=== PATIENT | male | born 2000 | race Caucasian/White ===

== ENCOUNTER 2018-10-07 22:46 | Emergency (ER) | payer OTHER ==
[2018-10-08 01:50] LABS: ADD MAN DIFF? NO
[2018-10-08 01:53] LABS: WHITE BLOOD COUNT 14.1 10^3/ul (4.8-10.8)
[2018-10-08 01:53] LABS: BASOPHILS % 0.2 % (0.0-2.0); EOSINOPHILS # 0.1 10^3/ul (0.0-0.5); EOSINOPHILS % 0.4 % (0.0-7.0); HEMATOCRIT 46.7 % (42.0-52.0); LYMPHOCYTES # 1.7 10^3/ul (0.8-2.9); LYMPHOCYTES % 12.2 % (18.0-55.0); MEAN CORPUSCULAR HEMOGLOBIN 31.1 pg (29.0-33.0); MEAN CORPUSCULAR HGB CONC 34.3 g/dl (32.0-37.0); MEAN CORPUSCULAR VOLUME 90.7 fl (72.0-104.0); MEAN PLATELET VOLUME 12.6 fl (7.4-10.4); MONOCYTE # 1.3 10^3/ul (0.3-0.9); MONOCYTES % 9.4 % (0.0-13.0); NEUTROPHIL # 10.9 10^3/ul (1.6-7.5); NEUTROPHILS % 77.3 % (30.0-74.0); PLATELET COUNT 205 10^3/UL (140-415); RED BLOOD COUNT 5.15 10^6/ul (4.70-6.10); RED CELL DISTRIBUTION WIDTH 12.3 % (11.5-14.5)
[2018-10-08] MEDS: SOD CHLORIDE 0.9% 1,000 ML IV (01:53)
[2018-10-08 01:55] LABS: ADD UMIC YES; UR ASCORBIC ACID NEGATIVE (NEGATIVE); UR BILIRUBIN (Dip) NEGATIVE (NEGATIVE); UR BLOOD (Dip) 1+ mg/dL (NEGATIVE); UR CLARITY SLIGHTLY CLOUDY (CLEAR); UR COLOR YELLOW (YELLOW); UR GLUCOSE (Dip) NEGATIVE (NEGATIVE); UR KETONES (Dip) 2+ mg/dL (NEGATIVE); UR LEUKOCYTE ESTERASE (Dip) NEGATIVE Leu/ul (NEGATIVE); UR MUCUS MODERATE /HPF (NONE SEEN); UR NITRITE (Dip) NEGATIVE (NEGATIVE); UR RBC 2 /HPF (0-5); UR SPECIFIC GRAVITY (Dip) 1.036 (1.003-1.030); UR TOTAL PROTEIN (Dip) 1+ mg/dl (NEGATIVE); UR UROBILINOGEN (Dip) NEGATIVE (NEGATIVE); UR WBC 4 /HPF (0-5)
[2018-10-08] MEDS: ONDANSETRON 4 MG INJ IV (01:59)
[2018-10-08] MEDS: DOCUSATE SODIUM 100 MG CAP PO (02:07)
[2018-10-08] MEDS: MAGNESIUM CITRATE 300 ML BTL PO (02:07)
[2018-10-08 02:13] LABS: ALANINE AMINOTRANSFERASE 23 IU/L (13-69); ALBUMIN 5.3 g/dl (3.3-4.9); ALBUMIN/GLOBULIN RATIO 1.35; ALKALINE PHOSPHATASE 93 IU/L (42-121); ANION GAP 17 (5-13); ASPARTATE AMINO TRANSFERASE 22 IU/L (15-46); BILIRUBIN,INDIRECT 0.4 mg/dl (0-1.1); BILIRUBIN,TOTAL 0.4 mg/dl (0.2-1.3); BLOOD UREA NITROGEN 17 mg/dl (7-20); CALCIUM 10.5 mg/dl (8.4-10.2); CARBON DIOXIDE 24 mmol/L (21-31); CHLORIDE 106 mmol/L (97-110); Estimated GFR > 60 mL/min (>60); GLUCOSE 97 mg/dl (70-220); LIPASE 46 U/L (23-300); POTASSIUM 3.7 mmol/L (3.5-5.1); SODIUM 147 mmol/L (135-144); TOTAL PROTEIN 9.2 g/dl (6.1-8.1)
== END 2018-10-08 04:24 | disposition home or self-care (01) ==
LOC: FTE 22:46
DX: R10.9 Unspecified abdominal pain (principal)
CPT/HCPCS: 36415; 74018; 74176; 80053; 81001; 83690; 85025; 96374; 99285-25